=== PATIENT | male | born 1995 | race Asian ===

== ENCOUNTER 2016-07-14 18:42 | Emergency (ER) | payer SELFPAY ==
--- NOTE | 2016-07-14 18:54 | ED Physician Chart ---
Chief Complaint/HPI - Patient Information Date Seen:: 07/14/16 Time Seen:: 18:48 Chief Complaint:: vomiting History of Present Illness:: 20-year-old male, otherwise healthy, with acute, constant, moderate, vomiting since this afternoon. Has associated nausea and diarrhea. Reports abdominal pain only with vomiting but otherwise no abdominal pain. No fevers, dysuria, chest pain, palpitations, acute vision changes, headache. Historian:: Patient Review:: Nurse's Note Reviewed Review of Systems - Review of Systems Other: Complete system review otherwise unremarkable except as noted in HPI. Past Medical History - Past Medical History Past Medical History: No significant medical hx Family History: None Social History: Non Smoker, No Alcohol, No Drug Use, Single Surgical History: None Psychiatricy History: None Medication: None Family Medical History - Family Member Mother History Unknown: Yes Ethnicity: Non- Physical Exam - Physical Examination Other:: INITIAL VITAL SIGNS: Reviewed by me GENERAL: Alert and interactive. No acute distress HEAD: Head is normocephalic and atraumatic EYES: EOMI. . No scleral icterus. No conjunctival injection ENT: Moist mucous membranes. NECK: Supple. No masses. Full range of motion RESPIRATORY: No tachypnea. Clear breath sounds bilaterally. No wheezing, rales, or rhonchi CV: Regular rate and rhythm. No murmurs, rubs, or gallops ABDOMEN: Soft, non-distended, non-tender. No guarding. No rebound. No masses. EXTREMITIES: No deformity. No cyanosis. No edema. SKIN: Warm and dry. No obvious rashes. NEUROLOGIC: Alert and oriented. Face is symmetric. Speech is normal. Moves all extremities equally. Motor and sensory distally intact. Labs/Radiology/EKG Results - Lab Results Results: Lab Results 07/14/16 07/14/16 07/14/16 Range/Units 19:27 19:27 20:13 WBC 23.5 H* (4.8-10.8) Th/cmm RBC 5.99 H (4.30-5.70) Mil/cmm Hgb 18.9 H (13.2-17.3) gm/dL Hct 52.9 H (39.0-49.0) % MCV 88.4 (80-99) fl MCH 31.6 H (26.0-30.0) pg MCHC Differential 35.7 (28.0-36.0) pg RDW 11.5 (11.5-20.0) % Plt Count 283 (150-400) Th/cmm MPV 8.4 fl Band Neutrophils % 14 H (0-10) % Neutrophils (Manual) 78 (40-80) % Lymphocytes 4 L (20-50) % Monocytes 3 (2-10) % Eosinophils 1 (0-5) % Basophils 0 (0-3) % Platelet Estimate ADEQUATE (NORMAL) Platelet Morphology NORMAL (NORMAL) RBC Morph Micro Appear NORMAL (NORMAL) Sodium 138 (136-145) mEq/L Potassium 4.3 (3.5-5.1) mEq/L Chloride 103 (98-107) mEq/L Carbon Dioxide 23.4 (21.0-31.0) mEq/L Anion Gap 15.9 (7.0-16.0) BUN 24 (7-25) mg/dL Creatinine 1.3 (0.7-1.3) mg/dL Est GFR ( Amer) > 60.0 ml/min Est GFR (Non-Af Amer) > 60.0 ml/min BUN/Creatinine Ratio 18.5 Glucose 103 (70-105) mg/dL Whole Bld Lactic Acid 1.61 (0.60-2.00) mmol/L Calcium 10.2 (8.6-10.3) mg/dL Total Bilirubin 0.8 (0.3-1.0) mg/dL AST 47 H (13-39) U/L ALT 142 H (7-52) U/L Alkaline Phosphatase 64 (34-104) U/L Total Protein 7.9 (6.0-8.3) gm/dL Albumin 4.9 (4.2-5.5) gm/dL Globulin 3.0 gm/dL Albumin/Globulin Ratio 1.6 (1.0-1.8) Amylase 57 (29-103) U/L Lipase 16 (11-82) U/L - Radiology Results Results: CT abdomen and pelvis without contrast. Preliminary report per radiology NAD Fatty infiltration of liver ED Septic Shock - . Is Septic Shock (SBP<90, OR Lactate>4 mmol\L) present?: No Reassessment (Disposition) - Reassessment Reassessment:: Patient has acute enteritis. He has an elevated white count but he also has severe dehydration which is exacerbating the leukocytosis. He does have some banding. The patient is [place] it is unknown what he has eaten that may have set this off. We did give Zosyn here in the ER. We will continue with a prescription of antibiotics. Also provided a prescription for oral antiemetics. Has completely refill symptoms after being treated here with IV antiemetics, IV analgesics and IV antibiotic. He also received IV fluids for the dehydration. Recommended follow-up with PCP 1 day. Gave return to ER precautions. Patient understands and agrees with the plan. Reassessment Condition:: Improved - Diagnosis Diagnosis:: Acute gastroenteritis and infectious diarrhea Dehydration Fatty liver - Aftercare/Follow up Instructions Aftercare/Follow-Up Instructions:: Counseled pt regarding lab results/diagnosis & need follow up, Refer to Discharge Instructions Medication Prescribed:: Cipro Zofran - Patient Disposition Discharge/Transfer:: Home Time:: 21:25 Condition at Disposition:: Improved ED Discharge Plan - Patient Disposition Admit/Discharge/Transfer: PT DISCHARGED HOME Condition at Disposition: Improved Instructions: Dehydration, Adult, [id number], Diarrhea, [id number], Nausea and Vomiting, [id number]
[2016-07-14] MEDS ORDERED: Sodium Chloride 0.9% 1,000 ML IV ONE ×2 (19:09→20:02)
[2016-07-14] MEDS ORDERED: Prochlorperazine 5 mg/mL 2mL Vial IVP STA (19:10)
[2016-07-14] MEDS ORDERED: Prochlorperazine 5 mg/mL 2mL Vial ONE (19:23)
[2016-07-14 19:53] LABS: HEMATOCRIT 52.9 % (39.0-49.0); HEMOGLOBIN 18.9 gm/dL (13.2-17.3); MEAN CELL VOLUME 88.4 fl (80-99); MEAN CORPUSCULAR HEMOGLOBIN 31.6 pg (26.0-30.0); MEAN CORPUSCULAR HGB CONC 35.7 pg (28.0-36.0); MEAN PLATELET VOLUME 8.4 fl; PLATELET COUNT 283 Th/cmm (150-400); RED BLOOD COUNT 5.99 Mil/cmm (4.30-5.70); RED CELL DISTRIBUTION WIDTH 11.5 % (11.5-20.0)
[2016-07-14 19:56] LABS: WHITE BLOOD COUNT 23.5 Th/cmm (4.8-10.8)
[2016-07-14 20:05] LABS: ALB/GLOB RATIO 1.6 (1.0-1.8); ALKALINE PHOSPHATASE 64 U/L (34-104); AMYLASE SERUM 57 U/L (29-103); ANION GAP 15.9 (7.0-16.0); BILIRUBIN,TOTAL 0.8 mg/dL (0.3-1.0); BUN - UREA NITROGEN 24 mg/dL (7-25); BUN/CREATININE RATIO 18.5; CALCIUM SERUM 10.2 mg/dL (8.6-10.3); CARBON DIOXIDE 23.4 mEq/L (21.0-31.0); CHLORIDE 103 mEq/L (98-107); CREATININE - SERUM 1.3 mg/dL (0.7-1.3); GLUCOSE 103 mg/dL (70-105); LIPASE 16 U/L (11-82); POTASSIUM SERUM 4.3 mEq/L (3.5-5.1); SGOT 47 U/L (13-39); SGPT/ALT 142 U/L (7-52); SODIUM SERUM 138 mEq/L (136-145)
[2016-07-14] MEDS ORDERED: Piperacillin Sodium/Tazobact 3.375 gm Vial IV ONE (20:12)
[2016-07-14 20:59] LABS: BAND NEUTROPHILE 14 % (0-10); TOTAL CELLS COUNTED 100
[2016-07-14 21:00] LABS: BASOPHIL 0 % (0-3); EOSINOPHIL 1 % (0-5); NEUTROPHILS 78 % (40-80); PLATELET ESTIMATE ADEQUATE (NORMAL); PLATELET MORPHOLOGY NORMAL (NORMAL)
[2016-07-14 21:31] LABS: URINE BILIRUBIN SMALL (NEGATIVE); URINE BLOOD TRACE (NEGATIVE); URINE COLOR AMBER; URINE GLUCOSE (UA) NEGATIVE (NEGATIVE); URINE KETONE 15 mg/dL (NEGATIVE); URINE PH 6.5; URINE PROTEIN 30 mg/dL (NEGATIVE); URINE UROBILINOGEN 0.2 E.U./dL (0.2 - 1.0)
[2016-07-14 21:32] LABS: URINE BACTERIA NONE SEEN /hpf (NONE SEEN); URINE EPITHELIAL CELLS NONE SEEN /lpf (FEW); URINE RBC 0-2 /hpf (0-5); URINE WBC 0-2 /hpf (0-5)
[2016-07-14] MEDS ORDERED: Dexamethasone Sodium Phos 4 mg/mL Vial IVP STA ×3 (21:40→22:03)
[2016-07-14] MEDS ORDERED: Dexamethasone Sodium Phos 10 mg/mL PF Vial ONE (21:42)
[2016-07-14 22:22] LABS: AMPHETAMINE URINE NEGATIVE (NEGATIVE); BARBITURATES URINE NEGATIVE (NEGATIVE)
--- NOTE | 2016-07-16 11:33 | Diagnostic Imaging Report ---
CT scan of the abdomen and pelvis without intravenous contrast History: Pain Total DLP equals 588 CTDI equals 10.2 Axial sections were obtained from the xiphoid process down to the pubic symphysis. The exam of the liver demonstrates a decrease in overall parenchymal density. The findings suggest fatty infiltration and should be correlated with liver function tests. No focal lesions. The spleen appears normal. No abnormalities are seen in the region of the pancreas. The kidneys appear normal bilaterally. The exam of the pelvis demonstrates preservation of normal fat planes. No abnormal soft tissue masses. No abnormal fluid collections. Impression: 1. No acute abnormalities 2. Decreased hepatic parenchymal density suggesting fatty infiltration. The findings should be correlated with liver function tests.
== END 2016-07-15 01:01 | disposition home or self-care (01) ==
LOC: ER 18:42
DX: A09 Infectious gastroenteritis and colitis, unspecified (principal); E86.0 Dehydration; K76.0 Fatty (change of) liver, not elsewhere classified
CPT/HCPCS: 99285; 96365; 96375; 74176; 36415; 83605; 80300; 85007; 85027; 81001; 82150; 83690; 80053; 87040 ×2; J1885; J2405; J3490; J2543; J0780; J1200; J7030